=== PATIENT | female | born 1970 ===

== ENCOUNTER 2022-08-14 05:32 | Day surgery (SDC) | payer OTHER ==
[~2022-08-14] VITALS: Ht 160 cm; Wt 50.8 kg
[~2022-08-14 05:32] MED LIST: CLONAZEPAM0.5 MG PO; HYDRODIURIL12.5 MG PO; INTEGRA CAPSUL1 EACH PO; PANTOPRAZOLE SO40 M2
[2022-08-14] MEDS ORDERED: TYLENOL325 MG PO (10:44)
== END 2022-08-14 13:00 | disposition home or self-care (01) ==
LOC: CIR.AMB 05:32
PROVIDERS: ATTEND Obstetrics & Gynecology Gynecology
DX: N84.0 Polyp of corpus uteri (principal); Z88.8 Allergy status to other drugs, medicaments and biological substances; I10 Essential (primary) hypertension; J45.909 Unspecified asthma, uncomplicated; K21.9 Gastro-esophageal reflux disease without esophagitis